=== PATIENT | male | born 1950 | race Caucasian/White ===

== ENCOUNTER 2019-07-14 14:47 | Inpatient (IN) | payer MEDICARE ==
--- NOTE | 2019-07-14 16:43 | ED ---
Abdominal Pain/Male - HPI Summary HPI Summary: This patient is a 68 year old male presenting to [facility] with a chief complaint of abdominal pain since one day ago. He states the pain is in the umbilical area and states he has never had this kind of pain before. He states his last bowel movement was 5 days ago. He states he has not had any abdominal surgeries. He states he normally takes a laxative when he is constipated and it works but it has not worked. He rates his pain 7/10 in severity. - History of Current Complaint Chief Complaint: EDAbdPain Stated Complaint: ABDOMINAL PAIN PER PT Time Seen by Provider: 07/14/19 16:36 Hx Obtained From: Patient Onset/Duration: Lasting Hours Pain Intensity: 7 Pain Scale Used: 0-10 Numeric Location: Umbilical - Allergies/Home Medications Allergies/Adverse Reactions: Allergies Allergy/AdvReac Type Severity Reaction Status Date / Time No Known Allergies Allergy Verified 07/14/19 15:12 PMH/Surg Hx/FS Hx/Imm Hx Cardiovascular History: Denies: Hx Myocardial Infarction History: Denies: Hx Acute Renal Failure Infectious Disease History: No Infectious Disease History: Denies: Traveled Outside the in Last 30 Days - Family History Known Family History: Negative: Seizure Disorder - Social History Lives: Alone Hx Substance Use: No Substance Use Type: Reports: None Review of Systems Negative: Fever Positive: Abdominal Pain, Other - Constipation All Other Systems Reviewed And Are Negative: Yes Physical Exam - Summary Physical Exam Summary: Appearance: Well-appearing, Well-nourished, lying in bed comfortably Skin: Warm, dry, no obvious rash Eyes: sclera anicteric, no conjunctival pallor ENT: mucous membranes moist, pharynx appears normal Neck: Supple, nontender Respiratory: Clear to auscultation, no signs of respiratory distress Cardiovascular: Normal S1, S2. No murmurs. Normal distal pulses in tibial and radial bilaterally. Abdomen: Soft, general abdominal tenderness that seems to be voluntary as he was not able to relax, normal active bowel sounds present Musculoskeletal: Normal, Strength/ROM Intact Neurological: A&Ox3, awake and alert, mentation is normal, speech is fluent and appropriate Psychiatric: affect is normal, does not appear anxious or depressed Rectal: Refused exam after explaining the need. Triage Information Reviewed: Yes Vital Signs On Initial Exam: Initial Vitals Temp Pulse Resp BP Pulse Ox 98.8 F 76 16 139/98 96 07/14/19 15:08 07/14/19 15:08 07/14/19 15:08 07/14/19 15:08 07/14/19 15:08 Vital Signs Reviewed: Yes Procedures - Sedation Patient Received Moderate/Deep Sedation with Procedure: No Diagnostics - Vital Signs Vital Signs Temp Pulse Resp BP Pulse Ox 07/14/19 15:08 98.8 F 76 16 139/98 96 - Laboratory Result Diagrams: 07/15/19 05:58 07/16/19 08:53 Lab Statement: Any lab studies that have been ordered have been reviewed, and results considered in the medical decision making process. - CT Abd/Pel CT Interpretation Completed By: Radiologist Summary of CT Findings: Mild bilateral hydronephrosis casued by bladder oulet obstruction from moderately enlarged prostate. ED Provider has reviewed this report. Abdominal Pain Male Course/Dx - Course Course Of Treatment: This patient is a 68 year old male presenting to [facility] with a chief complaint of umbilical pain and constipation since one day ago. Patient refused rectal exam. CT Abd/Pel reveals Mild bilateral hydronephrosis caused by bladder outlet obstruction from moderately enlarged prostate. Labs reveal WBC 14.3 H, MCH 32 H, Absolute Neuts 11.9 H, Absolute Monos 1.2 H, Creatinine 2.38 H, Glucose 109 H, CRP 37.48 H, Urine Blood 3+ A, Urine RBC 3+ A. The patient was given Zofran, Morphine, and NS in the ED. Dr. Jeffers, hospitalist, accepted the patient for admission. The admission plan was discussed with the patient and he was agreeable with this plan. - Diagnoses Provider Diagnoses: Bladder outlet obstruction, Acute kidney injury Discharge ED - Sign-Out/Discharge Documenting (check all that apply): Patient Departure - Discharge Plan Condition: Stable Disposition: ADMITTED TO [facility] - Billing Disposition and Condition Condition: STABLE Disposition: Admitted to [facility] - Attestation Statements Document Initiated by Jerome: Yes Documenting Scribe: Ridge Vasquez Provider For Whom Jerome is Documenting (Include Credential): Jj Oscar MD Scribe Attestation: Ridge Juarez, chevyibed for Jj Oscar MD on 07/17/19 at 1828. Scribe Documentation Reviewed: Yes Provider Attestation: The documentation as recorded by the chevyibeRidgea accurately reflects the service I personally performed and the decisions made by me, Jj Oscar MD Status of Jerome Document: Viewed
[2019-07-14] MEDS ORDERED: Ondansetron INJ* 2 MG/ML VIAL IV ONE (16:44)
[2019-07-14] MEDS ORDERED: NS 0.9% 1000 ML** 2,000 ML IV ONE (16:44)
[2019-07-14] MEDS ORDERED: Morphine 10 MG/ML VIAL (1 ml) IV ONE (16:44)
[2019-07-14 16:54] LABS: ABS Basophils 0.1 10^3/ul (0-0.2); ABS Monocytes 1.2 10^3/ul (0-0.8); ABS Neutrophils 11.9 10^3/ul (1.5-7.7); Eosinophil % 0.3 %; Hematocrit 49 % (42-52); Hemoglobin 16.9 g/dL (14.0-18.0); Lymphocyte % 7.2 %; Mean Corpuscular HGB Conc 34 g/dL (31-36); Mean Corpuscular Hemoglobin 32 pg (27-31); Mean Corpuscular Volume 92 fL (80-94); Mean Platelet Volume 7.6 fL (7.4-10.4); Platelet Count 245 10^3/uL (150-450); Red Blood Count 5.36 10^6 /uL (4.18-5.48); Red Cell Distribution Width 14 % (10-15); White Blood Count 14.3 10^3/uL (3.5-10.8)
[2019-07-14 17:19] LABS: Albumin 4.4 g/dL (3.2-5.2); Albumin/Globulin Ratio 1.3 (1-3); BUN/Creatinine Ratio 9.2 (8-20); C Reactive Protein 37.48 mg/L (<8.01); Calcium 9.8 mg/dL (8.6-10.3); EGFR African American 33.1 (>60); EGFR Non-African American 27.3 (>60); Globulin 3.5 g/dL (2-4); Total Bilirubin 0.5 mg/dL (0.2-1.0); Total Protein 7.9 g/dL (6.4-8.9)
[2019-07-14 20:10] LABS: Urine Appearance Clear; Urine Bacteria Absent (Absent); Urine Bilirubin Negative (Negative); Urine Blood 3+ (Negative); Urine Color Yellow; Urine Glucose Negative (Negative); Urine Ketones Negative (Negative); Urine Nitrite Negative (Negative); Urine Protein Negative (Negative); Urine Red Blood Cell 3+(>10/hpf) (Absent); Urine Urobilinogen Negative (Negative); Urine White Blood Cell Absent (Absent)
[2019-07-14] MEDS ORDERED: Acetaminophen TAB* 325 MG PO PRN (21:48)
[2019-07-14] MEDS ORDERED: Ondansetron INJ* 2 MG/ML VIAL IV PRN (21:48)
[2019-07-14] MEDS ORDERED: cefTRIAXone(*) 1 GM ADVAN/BAG ONE (22:35)
[2019-07-14] MEDS ORDERED: cefTRIAXone(*) 1 GM in NS 0.9% 50 ML* 50 ML IVPB SCH (23:00)
--- NOTE | 2019-07-14 23:28 | HP ---
HISTORY AND PHYSICAL: DATE OF ADMISSION: 07/14/19 CHIEF COMPLAINT: Abdominal pain. HISTORY OF PRESENT ILLNESS: This is a 68-year-old gentleman with no significant past medical history as he has not seen a primary care physician in over 50 years. He was seen by an orthopedic doctor roughly 20 years ago for having nails stuck in his fingers. He comes in due to abdominal pain. The patient stated that for the last 6 months he has been noticing intermittent weak stream of his urine, which he did not think much of it. He comes from [place] to meet his daughter in [place] and has had decreased food intake for the last few days due to his travel. Finally, he comes in on Sunday where his daughter was having a Halloween special at her bar, so the patient had about 6 to 8 screwdrivers. He noticed his urine was with very weak stream and he went home around 2:30 a.m. Sunday morning from the constitution party and woke up at 4 a.m. with severe abdominal pain, which got progressively worse. Pain was localized in the suprapubic area, nonradiating, pressure like. He thought that he was feeling constipated. He tried some enema, which did not help much with his pain or having any bowel movement. He has also had some fever, chills, and sweats and the daughter finally convinced him to come to the ER today. In the ER , he continued to have pain. He received some morphine and Zofran, and a CAT scan was suggestive of there was some mild hydronephrosis with bladder outlet obstruction, so Neil was placed with much difficulty according to the nurse and post Neil, the patient had close to 1000 cc of urine and since the Neil placement, the patient's pain had been completely resolved. He no longer has any vomiting and feels back to his normal self. His blood pressure improved quite significantly as well. He otherwise denies any numbness, tingling, weakness, or any vomiting. He does have some chronic cough, which is secondary to his smoking. PAST MEDICAL HISTORY: The patient does not have any medical history as he has not seen a physician in over 50 years. PAST SURGICAL HISTORY: He had a nail gun shoot nails in his third and fourth digits of the left hand, which required some surgical correction. This happened around 1999. HOME MEDICATIONS: Currently not on any medication. ALLERGIES: No known drug allergies. FAMILY HISTORY: The patient is unsure of any medical problems in his mother and father, stated that they in their 70s, and unsure as to the cause of . SOCIAL HISTORY: He has a smoking history of about a pack a day for 50 years. He denies any alcohol abuse, states that he drinks about 1 to 2 times a year. Last drinking event was the 6 to 8 drinks that he had at a constitution party at his daughter 's bar, but denies any other drug use. 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 He is otherwise full code and his daughter, Radha, is his healthcare proxy. REVIEW OF SYSTEMS: A 14-point review of systems did not reveal any new information other than the ones in the HPI. PHYSICAL EXAMINATION GENERAL: The patient does not appear to be in any acute respiratory distress, was comfortable lying on the ER stretcher. VITAL SIGNS: In the ER, BP was noted to be 119/73, heart rate 70, respiration rate 16, saturating 96% on room air, temperature documented at 99.4 at max. MENTAL STATUS: Awake, alert, oriented to time; place; and person. HEAD AND NECK: Atraumatic, normocephalic. Bilateral pupils reactive. Oral mucosa was dry. Neck supple. No jugular venous distention. LUNGS: Clear to auscultation bilaterally. No wheezes, rhonchi, or rales. HEART: S1, S2. Regular rate and rhythm. ABDOMEN: Soft, nontender, nondistended. EXTREMITIES: No cyanosis, clubbing, or edema. DIAGNOSTIC STUDIES/LABORATORY DATA: Labs: CBC was showing minimally elevated white count of 14.3, hemoglobin and hematocrit stable. Platelet count was normal. Comprehensive metabolic panel was remarkable for elevated creatinine of 2.38, random glucose minimally elevated at 109, lactic acid normal, C-reactive protein elevated at 37.48. Urinalysis was 3+ blood, negative for any nitrite or leuk esterase. CT abdomen and pelvis without contrast showed mild bilateral hydronephrosis caused by bladder outlet obstruction from moderately enlarged prostate. There is also documentation of mild perinephric stranding. IMPRESSION: This is a 68-year-old gentleman here with abdominal pain, noted to have acute urinary retention secondary to bladder outlet obstruction, improved clinically with Neil placement; however, does have elevated white count, C- reactive protein, and bilateral perinephric stranding. Possible pyelonephritis. ASSESSMENT AND PLAN: 1. Leukocytosis, questionable secondary to pyelonephritis. We will start the patient on ceftriaxone, follow blood cultures, and titrate antibiotics appropriately. 2. Acute versus chronic kidney injury secondary to obstructive uropathy. We will consider urology consult in the morning to see if the patient would benefit from any resection of prostate. 3. History of smoking. Smoking cessation advised. I will start the patient on nicotine patch. 4. DVT prophylaxis with sequential compression device. 5. Code status. Full code with daughter being healthcare proxy. [id number]/[facility] #: [id number] MTDD
[2019-07-15] MEDS: NS 0.9% 1000 ML** 1,000 ML IV SCH ×2 (00:10→11:30)
[2019-07-15] MEDS: Nicotine PATCH 21 MG/24 HR* PATCH TRANSDERM SCH ×2 (00:11→09:25)
[2019-07-15] MEDS: Nicotine Patch Removal NOTE FOLLOW UP SCH (05:18)
[2019-07-15 06:30] LABS: ABS Basophils 0.1 10^3/ul (0-0.2); ABS Eosinophils 0.3 10^3/ul (0-0.6); ABS Lymphocytes 1.1 10^3/ul (1.0-4.8); ABS Monocytes 0.8 10^3/ul (0-0.8); ABS Neutrophils 5.8 10^3/ul (1.5-7.7); Eosinophil % 3.5 %; Hematocrit 40 % (42-52); Hemoglobin 13.6 g/dL (14.0-18.0); Lymphocyte % 13.9 %; Mean Corpuscular HGB Conc 34 g/dL (31-36); Mean Corpuscular Hemoglobin 31 pg (27-31); Mean Corpuscular Volume 93 fL (80-94); Mean Platelet Volume 7.8 fL (7.4-10.4); Nucleated Red Blood Cells % 0.1; Platelet Count 190 10^3/uL (150-450); Red Blood Count 4.33 10^6 /uL (4.18-5.48); Red Cell Distribution Width 14 % (10-15); White Blood Count 8.1 10^3/uL (3.5-10.8)
[2019-07-15 06:48] LABS: BUN/Creatinine Ratio 12.7 (8-20); Calcium 8.3 mg/dL (8.6-10.3); EGFR African American 53.4 (>60); EGFR Non-African American 44.2 (>60)
[2019-07-15 07:19] LABS: Potassium 4.1 mmol/L (3.5-5.0)
[2019-07-15] MEDS: Tamsulosin CAP* 0.4 MG PO SCH (12:30)
--- NOTE | 2019-07-15 17:47 | PN ---
Subjective Date of Service: 07/15/19 Interval History: Patient is frustrated about having to stay in the hospital, but ultimately has agreed to stay overnight. Endorses that he has been having urine stream difficulty for the last several months. Patient denies flank/low back pain, fever/chills, abd pain, nausea, difficulty breathing, chest pain. He and his daughter will attempt to call urology office in his hometown in [place] but are otherwise agreeable to him staying in town until he can be seen by Dr. Tavares in follow up. Objective Active Medications: Acetaminophen (Tylenol Tab*) 650 mg PO Q4H PRN PRN Reason: PAIN - MILD Sodium Chloride (Ns 0.9% 1000 Ml) 1,000 mls @ 100 mls/hr IV PER RATE [facility] Last Admin: 07/15/19 11:30 Dose: 100 mls/hr Ceftriaxone Sodium 1 gm/ (Sodium Chloride) 50 mls @ 100 mls/hr IVPB Q24H [facility] Last Admin: 07/14/19 22:36 Dose: 100 mls/hr Nicotine (Nicotine Patch 21 Mg/24 Hr*) 1 patch TRANSDERM DAILY [facility] Last Admin: 07/15/19 09:25 Dose: Not Given Ondansetron HCl (Zofran Inj*) 4 mg IV Q4H PRN PRN Reason: NAUSEA/VOMITING Pharmacy Profile Note (Nicotine Patch Removal Note*) 1 note FOLLOW UP 0600 [facility] Last Admin: 07/15/19 05:18 Dose: Not Given Tamsulosin HCl (Flomax Cap*) 0.4 mg PO 1230 [facility] Last Admin: 07/15/19 12:30 Dose: 0.4 mg Vital Signs - 8 hr 07/15/19 07/15/19 11:32 15:06 Temperature 97.8 F 98.2 F Pulse Rate 63 65 Respiratory 20 18 Rate Blood Pressure 137/71 128/62 (mmHg) O2 Sat by Pulse 99 98 Oximetry Oxygen Devices in Use Now: None Appearance: Thin, elderly white male, laying upright in bed, appearing in NAD; urine in monroe bag somewhat red in appearance Eyes: No Scleral Icterus, PERRLA Ears/Nose/Mouth/Throat: Mucous Membranes Moist Neck: NL Appearance and Movements; NL JVP Respiratory: Symmetrical Chest Expansion and Respiratory Effort, Clear to Auscultation Cardiovascular: NL Sounds; No Murmurs; No JVD, RRR Abdominal: - - abd soft, nontender, nondistended; no CVA tenderness, no suprapubic tenderness Extremities: No Edema, No Clubbing, Cyanosis Skin: No Rash or Ulcers Neurological: Alert and Oriented x 3, NL Muscle Strength and Tone Result Diagrams: 07/15/19 05:58 07/15/19 05:58 Assess/Plan/Problems-Billing Assessment: 68 yo white male without significant PMHx as he has not had a medical appointment in 50 years, who is an active smoker, presents with urine retention. - Patient Problems (1) Urine retention Current Visit: Yes Status: Acute Code(s): R33.9 - RETENTION OF URINE, UNSPECIFIED SNOMED Code(s): 745648687 Comment: -Secondary to enlarged prostate confirmed on CT abd/pelvis -Patient was retaining +1000mL urine -Discussed with Dr. Tavares. Recommends starting flomax, checking PSA from ED but will ultimately need PSA repeat outpatient, and continue indwelling monroe for 2- 3 weeks. Agrees patient is not candidate for self cath considering difficulty catheterization by nursing -Appointment with Dr. Tavares scheduled for 07/28/19. Will d/w patient and family tomorrow to see if they have success finding urologist in [place] who can see patient. I suspect this to be unlikely as he does not have a PCP there either -ordered PSA to be added on to labs drawn from ED. It is possible that if these labs were drawn after monroe was placed, that is why PSA is elevated. Either way , patient will need outpatient repeat as per Dr. Tavares -Monroe back with red tint, likely due to traumatic monroe placement. Will continue to monitor -d/c empirin ceftriaxone as UA negative (2) Bilateral hydronephrosis Current Visit: Yes Status: Acute Code(s): N13.30 - UNSPECIFIED HYDRONEPHROSIS SNOMED Code(s): 87877001 Comment: -2/2 enlarged prostate and bladder outlet obstruction -indwelling monroe as above (3) ROSHNI (acute kidney injury) Current Visit: Yes Status: Acute Code(s): N17.9 - ACUTE KIDNEY FAILURE, UNSPECIFIED SNOMED Code(s): 49011905 Comment: -secondary to obstruction -Cr/BUN greatly improved -will d/c IVF this evening (4) Tobacco use Current Visit: Yes Status: Acute Code(s): Z72.0 - TOBACCO USE SNOMED Code( s): 311513258 Comment: -discussed smoking cessation -nicotine patch is ordered but patient declines (5) DVT prophylaxis Current Visit: Yes Status: Acute Code(s): Z29.9 - ENCOUNTER FOR PROPHYLACTIC MEASURES, UNSPECIFIED SNOMED Code(s): 119403243 Comment: -lovenox (6) Full code status Current Visit: Yes Status: Acute Code(s): Z78.9 - OTHER SPECIFIED HEALTH STATUS SNOMED Code(s): 629218843 Status and Disposition: will continue to monitor fluid status overnight considering urine retention, hopeful for d/c tomorrow if medically stable
[2019-07-15] MEDS ORDERED: Enoxaparin(*) 40 MG/0.4 ML SYR SUBCUT SCH (18:00)
[2019-07-16] MEDS: Nicotine Patch Removal NOTE FOLLOW UP SCH (05:54)
[2019-07-16] MEDS: Nicotine PATCH 21 MG/24 HR* PATCH TRANSDERM SCH (07:21)
[2019-07-16 09:31] LABS: BUN/Creatinine Ratio 14.7 (8-20); Calcium 8.8 mg/dL (8.6-10.3); EGFR African American 95.4 (>60); EGFR Non-African American 78.8 (>60); Potassium 3.7 mmol/L (3.5-5.0)
[2019-07-16 12:15] VITALS: BP 146/75
--- NOTE | 2019-07-16 13:15 | DS ---
CC: Dr. Juan Tavares * DATE OF ADMISSION: 07/14/2019. DATE OF DISCHARGE: 07/16/2019. PRIMARY CARE PHYSICIAN: None. CONSULTING UROLOGIST: Dr. Tavares. ATTENDING PHYSICIAN WHILE IN THE HOSPITAL: Dr. Jennifer Jeffers * (dictated by SARAH Friend). PRIMARY DIAGNOSIS: 1. Urinary retention secondary to obstructive uropathy. 2. Enlarged prostate. 3. Acute kidney injury secondary to obstruction, resolved. SECONDARY DIAGNOSES: Tobacco use. STUDIES WHILE IN THE HOSPITAL: Abdomen and pelvis CT on 07/14/2019: Impression : Mild bilateral hydronephrosis caused by bladder outlet obstruction from moderately enlarged prostate. HISTORY OF PRESENT ILLNESS/HOSPITAL COURSE: Frantz Mata is a 68-year-old white male without a significant past medical history as he had not seen a primary care physician in over 50 years. He presented to the emergency department on 07/14/2019 due to severe abdominal pain. Please see further details in the admitting history and physical written by Dr. Paddy Jeffers on . The patient was found to have obstructive uropathy on abdomen and pelvis CT due to an enlarged prostate. A Neil catheter was placed by nursing staff which was quite difficult to place reportedly. There was approximately 1, 000 cc of urine output at that point that the patient was retaining. He was not evaluated by a urologist during his hospital stay because there was no urology coverage. However, his case was discussed closely with Dr. Tavares. Dr. Tavares recommended that the patient have an indwelling Neil for two to three weeks. He then needs a follow-up with a urologist. He recommended starting Flomax 0.4 mg p.o. daily. Additionally agreed that the patient was not a good candidate for straight cath considering how difficult of a catheterization occurred in the hospital. He additionally was found to have bilateral hydronephrosis which was likely secondary to the bladder obstruction and will likely improve as the Neil remains indwelling. He was initially empirically started on Ceftriaxone; however, his urinalysis was not concerning for infection and Ceftriaxone was then discontinued. The patient was offered a nicotine patch during his hospital stay and he declined. Smoking cessation was discussed and he is not interested at this time. During the patient's hospital stay, he was given IV hydration until the evening of 07/15/2019. His kidney injury resolved by the day of discharge. His initial creatinine was 2.38 and his final creatinine on the day of discharge was 0.95. Additionally during his stay, he had a PSA measured; however, it is unclear if this blood was drawn prior to or after Neil placement, in which case it would not be the most accurate. It was elevated to 9.3 and needs to be repeated in the outpatient setting per Dr. Tavares. The patient was afebrile and during the entirety of his hospital stay. His leukocytosis resolved, initially it was 14,300 by blood cell count. On the day of discharge, blood culture is without growth and to date the patient has no complaints. His abdominal pain is resolved. He denies flank pain, fever, chills, difficulty urinating, chest pain, low back pain, difficulty with pain. PHYSICAL EXAMINATION ON THE DAY OF DISCHARGE: General: Thin, elderly, white male lying upright in hospital appearing in no acute distress. Eyes: PERRL. Sclerae anicteric. ENT: Mucous membranes moist. Lungs: Clear to auscultation throughout. Cardio: Regular rate and rhythm without murmurs, rubs , or gallops. Abdomen: Soft, nontender, nondistended without suprapubic tenderness and without CVA tenderness. Extremities: No clubbing, cyanosis, or edema. : Urine and Neil bags clear and gilberto colored. Neuro: The patient is alert and oriented times three. No focal deficits. Able to move all extremities. No tremors. DISCHARGE PLAN: The patient was provided with Neil supplies and education by nursing staff. The patient understands that he needs to continue the Neil for at least two to three weeks. He has an appointment set up with Dr. Tavares for July 28 at 9:30 here in [place]. The patient was advised to call a local urologist in [place] where he is from to see if anyone will be able to see him within two to three weeks. If they are unable to fit him in at that time, he is advised to return to [place] for his appointment or stay in [place] with his daughter until that appointment if needed. Additionally, he was provided with full documentation and disc of his CT abdomen and pelvis to bring to a urologist should he find one out of the area who can see him in a timely fashion. Additionally, the patient was advised to establish a primary care provider as needs to be following with one. The patient declined nicotine patch prescription. He is advised to return to hospital care if he experiences fever , chills, no urine output for over eight hours, gilson blood in his Neil, flank pain, suprapubic pain, low back pain. New discharge medications: Flomax 0.4 mg p.o. daily. Continued home medications: Nonapplicable. DIET: Regular unrestricted diet. ACTIVITY: The patient can return to normal activity as tolerated. DISPOSITION: To home. CONDITION ON DISCHARGE: Stable. TIME SPENT: Approximately 40 minutes were spent on this discharge, approximately half this time was spent at bedside evaluating the patient and discussing the plan of care. SARAH FRIEND [id number]/[facility] #: [id number] MTDBeth
[2019-07-16] MEDS: Tamsulosin CAP* 0.4 MG PO SCH (13:29)
== END 2019-07-16 14:00 | disposition home or self-care (01) | DRG 726 ==
LOC: ED 14:47 → MEDTELE 21:48
PROVIDERS: ADMIT Internal Medicine; ATTEND Internal Medicine
PROC: 0T9B70Z Drainage of Bladder with Drainage Device, Via Natural or Artificial Opening (ICD-10-PCS; principal; 2019-07-14)
DX: N40.1 Benign prostatic hyperplasia with lower urinary tract symptoms (principal); N17.9 Acute kidney failure, unspecified; N13.30 Unspecified hydronephrosis; R05 Cough; F17.210 Nicotine dependence, cigarettes, uncomplicated; D72.829 Elevated white blood cell count, unspecified; R33.9 Retention of urine, unspecified; K59.00 Constipation, unspecified; N32.0 Bladder-neck obstruction
CPT/HCPCS: 36415; 74176; 80048; 80053; 81003; 81015; 83605; 83690; 84153; 85025; 86140; 87040; 96361; 96374; 96375; 99283; A9270-GY; G0103; J0696; J1650; J2270; J2405

== ENCOUNTER 2019-07-31 22:28 | Emergency (ER) | payer MEDICARE ==
[2019-07-31] MEDS ORDERED: Lidocaine 2% JELLY* 10 ML JELLY TOPICAL ONE (22:55)
[2019-07-31] MEDS ORDERED: Lidocaine 2% JELLY* 6 ML JELLY TOPICAL ONE (22:56)
[2019-07-31] MEDS ORDERED: oxyCODONE/Acetamin 5/325 MG* TAB PO ONE (23:17)
[2019-07-31] MEDS ORDERED: Phenazopyridine TAB* 100 MG PO ONE (23:17)
--- NOTE | 2019-07-31 23:29 | ED ---
GI/ HPI - HPI Summary HPI Summary: Patient is a 68 y/o M presenting to [facility] with complaints of urinary retention. The patient had his catheter taken out the morning of 07/31/[address] Tavares and the patient has not been able to urinate since. Bladder scan done in ED showed 968 mL of urine present in bladder. PMHx of HTN, BPH is noted. Rare alcohol usage, light tobacco usage, and no substance usage is reported. On child psychiatrist , nothing is noted to aggravate/alleviate Sx. Home medications and allergies are reviewed. - History of Current Complaint Chief Complaint: EDUrogenitalProblems Time Seen by Provider: 07/31/19 22:49 Stated Complaint: UNABLE TO URININATE PER PT Hx Obtained From: Patient Onset/Duration: Started Hours Ago, Still Present Timing: Constant, Lasting Hours Pain Intensity: 10 Associated Signs and Symptoms: Positive: Other: - urinary retention Aggravating Factor(s): Nothing Alleviating Factor(s): Nothing - Additional Pertinent History Primary Care Physician: JOHN - Allergy/Home Medications Allergies/Adverse Reactions: Allergies Allergy/AdvReac Type Severity Reaction Status Date / Time No Known Allergies Allergy Verified 07/14/19 15:12 PMH/Surg Hx/FS Hx/Imm Hx Endocrine/Hematology History: Denies: Hx Anticoagulant Therapy, Hx Blood Disorders, Hx Blood Transfusions, Hx Bone Marrow Disease, Hx Diabetes, Hx Systemic Lupus Erythematosus, Hx Sickle Cell Disease, Hx Thyroid Disease, Hx Anemia, Hx Unexplained Bleeding, Other Endocrine/Hematological Disorders Cardiovascular History: Reports: Hx Hypertension Denies: Hx Aneurysm, Hx Angina, Hx Angioplasty, Hx Auto Implanted Cardiovert Defib, Hx Cardiac Arrest, Hx Cardiomegaly, Hx Congenital Heart Disease, Hx Congestive Heart Failure, Hx Coronary Artery Disease, Hx Deep Vein Thrombosis, Hx Embolism, Hx Hypercholesterolemia, Hx Hypotension, Hx Myocardial Infarction, Hx Pacemaker/ICD, Hx Peripheral Vascular Disease, Hx Rheumatic Fever, Hx Syncope , Hx Valvular Heart Disease, Other Cardiovascular Problems/Disorders Respiratory History: Denies: Hx Asthma, Hx Bronchopulmonary Dysplasia, Hx Chronic Bronchitis, Hx Chronic Obstructive Pulmonary Disease (COPD), Hx Cystic Fibrosis, Hx Lung Cancer , Hx Pleural Effusion, Hx Pneumonia, Hx Pulmonary Edema, Hx Pulmonary Embolism, Hx Seasonal Allergies, Hx Sleep Apnea, Other Respiratory Problems/Disorders GI History: Denies: Hx Cirrhosis, Hx Crohn's Disease, Hx Diverticulosis, Hx Gall Bladder Disease, Hx Gastroesophageal Reflux Disease, Hx Gastrointestinal Bleed, Hx Hiatal Hernia, Hx Irritable Bowel, Hx Jaundice, Hx Obstructive Bowel, Hx Ileostomy, Hx Pyloric Stenosis, Hx Ulcer, Other GI Disorders History: Reports: Hx Benign Prostatic Hyperplasia Denies: Hx Acute Renal Failure, Hx Chronic Renal Failure, Hx Dialysis, Hx Kidney Infection, Hx Kidney Stones, Other Problems/Disorders Musculoskeletal History: Denies: Hx Arthritis, Hx Back Problems, Hx Bursitis, Hx Congenital Bone Abnormalities, Hx Fibromyalgia, Hx Gout, Hx Orthopedic Injury, Hx Osteoporosis, Hx Scoliosis, Hx Tendonitis, Other Musculoskeletal History Sensory History: Reports: Hx Cataracts - Left, Hx Contacts or Glasses - Reading glasses Denies: Hx Eye Injury, Hx Eye Prosthesis, Hx Glaucoma, Hx Legally Blind, Hx Macular Degeneration, Hx Vision Problem, Hx Deafness, Hx Hearing Aid, Hx Hearing Problem, Other Sensory Impairments Opthamlomology History: Reports: Hx Cataracts - Left, Hx Contacts or Glasses - Reading glasses Denies: Hx Eye Injury, Hx Eye Prosthesis, Hx Glaucoma, Hx Legally Blind, Hx Macular Degeneration, Hx Vision Problem, Other Sensory Impairments Neurological History: Denies: Hx Dementia, Hx Developmental Delay, Hx Headaches, Hx Migraine, Hx Nerve Disease, Hx Seizures, Hx Spinal Cord Injury, Hx Transient Ischemic Attacks (TIA), Other Neuro Impairments/Disorders Psychiatric History: Denies: Hx Anxiety, Hx Attention Deficit Hyperactivity Disorder, Hx Autism, Hx Eating Disorder, Hx Oppositional [place] Disorder, Hx Depression, Hx Panic Disorder, Hx Post Traumatic Stress Disorder, Hx Inpatient Treatment, Hx Community Mental Health Tx, Hx Schizophrenia, Hx Bipolar Disorder, Hx Suicide Attempt, Hx of Violent Episodes Against Others - Cancer History Hx Hematologic Symptoms: No Hx Chemotherapy: No Hx Radiation Therapy: No Hx Palliative Cancer Treatment: No - Surgical History Surgery Procedure, Year, and Place: nail from nailgun removed from 3rd and 4th fingers Hx Anesthesia Reactions: No Infectious Disease History: No Infectious Disease History: Denies: Hx Clostridium Difficile, Hx Hepatitis, Hx Human Immunodeficiency Virus (HIV), Hx of Known/Suspected MRSA, Hx Shingles, Hx Tuberculosis, Hx Known/ Suspected VRE, Hx Known/Suspected VRSA, History Other Infectious Disease, Traveled Outside the [place] in Last 30 Days - Family History Known Family History: Negative: Seizure Disorder - Social History Alcohol Use: Rare Hx Substance Use: No Substance Use Type: Reports: None Smoking Status (MU): Light Every Day Tobacco Smoker Type: Cigarettes Length of Time of Smoking/Using Tobacco: 50 Have You Smoked in the Last Year: Yes Review of Systems Negative: Fever - on vitals, temp is 98 F Genitourinary: Other - positive - urinary retention All Other Systems Reviewed And Are Negative: Yes Physical Exam - Summary Physical Exam Summary: Appearance: Well-appearing, Well-nourished, lying in bed comfortable Skin: Warm, dry, no obvious rash Eyes: sclera anicteric, no conjunctival pallor ENT: mucous membranes moist Neck: deferred Respiratory: No signs of respiratory distress Cardiovascular: Appears well perfused, pulses are nml Abdomen: deferred Musculoskeletal: Moving all 4 extremities without obvious discomfort Neurological: Awake and alert, mentation is normal, speech is fluent and appropriate Psychiatric: affect is normal, does not appear anxious or depressed Triage Information Reviewed: Yes Vital Signs On Initial Exam: Initial Vitals Temp Pulse Resp BP Pulse Ox 98 F 79 18 158/53 98 07/31/19 22:31 07/31/19 22:31 07/31/19 22:31 07/31/19 22:31 07/31/19 22:31 Vital Signs Reviewed: Yes Procedures - Sedation Patient Received Moderate/Deep Sedation with Procedure: No Diagnostics - Vital Signs Vital Signs Temp Pulse Resp BP Pulse Ox 07/31/19 22:31 98 F 79 18 158/53 98 - Laboratory Lab Statement: Any lab studies that have been ordered have been reviewed, and results considered in the medical decision making process. Re-Evaluation - Re-Evaluation First Eval Re-Evaluation Time: 23:50 Comment: Monroe catheter was placed. Patient had complaints of pain at his penis from monroe. Pain medication was administered. 1200 mL fluid was drained. Second Eval Re-Evaluation Time: 00:50 Comment: UA results discussed, patient is agreeable with discharge to home. He will follow up with urology. GIGU Course/Dx - Course Course Of Treatment: Patient is a 68 y/o M presenting to [facility] with complaints of urinary retention. The patient had his catheter taken out the morning of by Dr. Tavares and the patient has not been able to urinate since. Bladder scan done in ED showed 968 mL of urine present in bladder. Monroe catheter was placed. Patient had complaints of pain at his penis from monroe. Pain medication was administered. During ED course, patient received lidocaine 2% jelly application, pyridium 200 mg PO x2, and Percocet, 2 tabs. 1200 mL fluid was able to be drained from Monroe catheter. Patient was discharged to home and will follow up with his urologist. He is agreeable with this plan. - Diagnoses Provider Diagnoses: Urinary retention Discharge ED - Sign-Out/Discharge Documenting (check all that apply): Patient Departure - discharge - Discharge Plan Condition: Good Disposition: HOME Patient Education Materials: Monroe Catheter Placement and Care (ED) Referrals: Juan Tavares MD [Medical Doctor] - 1 Day - Billing Disposition and Condition Condition: GOOD Disposition: Home - Attestation Statements Document Initiated by Jerome: Yes Documenting Scribe: TUTU BLUNT Provider For Whom Jerome is Documenting (Include Credential): KASHMIR PAULINO MD Scribe Attestation: TUTU Juarez, scribed for KASHMIR PAULINO MD on 08/01/19 at 1850. Scribe Documentation Reviewed: Yes Provider Attestation: The documentation as recorded by the TUTU cardenas accurately reflects the service I personally performed and the decisions made by me, KASHMIR PAULINO MD Status of Scribe Document: Viewed
[2019-08-01 00:27] LABS: Urine Appearance Cloudy; Urine Blood 3+ (Negative); Urine Color Yellow; Urine Ketones Negative (Negative); Urine Nitrite Negative (Negative); Urine Protein 1+(30 mg/dL) (Negative); Urine Specific Gravity 1.011 (1.010-1.030); Urine Urobilinogen Negative (Negative)
[2019-08-01 00:28] LABS: Urine Bacteria Absent (Absent); Urine Bilirubin Negative (Negative); Urine Glucose Negative (Negative); Urine Red Blood Cell 3+(>10/hpf) (Absent); Urine White Blood Cell 2+(11-20/hpf) (Absent)
[2019-08-01] MEDS ORDERED: Phenazopyridine TAB* 100 MG PO ONE (00:48)
[2019-08-01 01:36] VITALS: BP 123/80
== END 2019-08-01 01:15 | disposition home or self-care (01) ==
LOC: ED 22:28
DX: N40.1 Benign prostatic hyperplasia with lower urinary tract symptoms (principal); R33.8 Other retention of urine; I10 Essential (primary) hypertension; F17.210 Nicotine dependence, cigarettes, uncomplicated
CPT/HCPCS: 51702; 81003; 81015; 87086; 99283; A9270-GY